=== PATIENT | male | born 1960 | race Caucasian/White ===

== ENCOUNTER 2023-08-22 14:48 | Outpatient (AMB) | payer OTHER, SELFPAY ==
--- NOTE | 2023-08-22 15:04 | HO.NEPHOV ---
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 He does not monitor his blood pressure at [facility]. He does not have any chest pain, shortness of breath, paroxysmal nocturnal dyspnea, orthopnea, pedal edema, hematuria or orthostatic symptoms. He does not take any nonsteroidal anti-inflammatories and maintain good hydration. His serum creatinine has been stable. He does not have any headache, visual disturbances or new onset weakness. He is still smoking. He feels well. [facility] Medical History (Updated 08/22/23 @ 15:08 by Vani Riddle MA) CKD (chronic kidney disease) Hypertension Social History (Updated 08/22/23 @ 15:09 by Vani Riddle MA) Alcohol intake: current Patient Tobacco Use Status: Current everyday Tobacco user Cigarette Packs Per Day: 1 Use of substances other than those prescribed or required for medical reasons: No Physical Exam Vital Signs: Last Vital Signs Pulse 89 08/22/23 15:05 BP 130/60 08/22/23 15:05 Pulse Ox 97 08/22/23 15:05 Oxygen Delivery Method Room Air 08/22/23 15:05 Const General: comfortable and no acute distress Orientation/consciousness: patient oriented x3 HEENT Head: Yes normocephalic Mouth: Normal oral and palatal mucosa present Eyes EOM: EOMs intact bilaterally Neck Neck: Yes supple Resp Auscultation: clear to auscultation bilaterally Cardio Jugular venous distension: no JVD Rate: regular rate GI Palpation (GI): Soft to palpation Auscultation: normal bowel sounds General: Yes no CVA tenderness Back/Spine/Pelvis Back: no CVA tenderness Skin General skin exam: no rashes or lesions noted Neuro General: patient oriented x3 and moves all extremities Extrem General: Yes no pedal edema Results Reviewed Nephrology Results: No Data to Display Assessment & Plan Assessment & Plan (1) Hypertension: Code(s): I10 - Essential (primary) hypertension Category: Medical Qualifiers: Hypertension type: primary hypertension Qualified Code(s): I10 - Essential (primary) hypertension Plan Ervin has longstanding hypertension. His blood pressure is at goal. He should be on a low-sodium diet. He should avoid nonsteroidal anti-inflammatories. He should maintain good hydration. He has no orthostatic symptoms. He has no systemic symptoms. I had not make any medication changes today. His renal functions are stable. His blood chemistry is acceptable. I did not make any medication changes today. Follow-up lab work ordered. Follow-up appointment given. Answered all questions. Orders: Orders Blood Urea Nitrogen Today I10 - Essential (primary) hypertension Electrolytes Today I10 - Essential (primary) hypertension Creatinine Today I10 - Essential (primary) hypertension Medications: New losartan 25 mg PO DAILY 90 days 90 tabs 3RF Coding Level of Care Code Est Pt Level 4 (51668) Diagnoses Primary hypertension I10 Hypertension type: primary hypertension
[2023-08-22 15:05] VITALS: BP 130/60; PULSE 89; O2SAT 97
== END 2023-08-22 15:28 | disposition home or self-care (01) ==
PROVIDERS: PCP Internal Medicine; Visit Provider Internal Medicine Nephrology
DX: I10 Essential (primary) hypertension (principal)
CPT/HCPCS: 99214

== ENCOUNTER → 2023-08-22 14:48 | Outpatient (BNVA) | payer OTHER, SELFPAY | PROVIDERS: PCP Internal Medicine; Visit Provider Internal Medicine Nephrology ==

== ENCOUNTER 2024-02-22 14:50 | Outpatient (AMB) | payer OTHER, SELFPAY ==
--- NOTE | 2024-02-22 15:11 | HO.NEPHOV_ITS ---
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 He does not monitor his blood pressure at home. He does not have any chest pain, shortness of breath, paroxysmal nocturnal dyspnea, orthopnea, pedal edema, hematuria or orthostatic symptoms. He does not take any nonsteroidal anti-inflammatories and maintain good hydration. His serum creatinine has been stable. He does not have any headache, visual disturbances or new onset weakness. He is still smoking. He feels well. [facility] Medical History (Updated 08/22/23 @ 15:08 by Vani Riddle MA) CKD (chronic kidney disease) Hypertension Social History Alcohol intake: current Patient Tobacco Use Status: Current everyday Tobacco user Cigarette Packs Per Day: 1 Review of Systems Const All systems reviewed & are unremarkable except as noted in HPI and below Physical Exam Vital Signs: Last Vital Signs Pulse 80 02/22/24 15:12 BP 140/60 H 02/22/24 15:12 Pulse Ox 96 02/22/24 15:12 Oxygen Delivery Method Room Air 02/22/24 15:12 BMI result Body Mass Index 21.9 Const General: comfortable and no acute distress Orientation/consciousness: patient oriented x3 HEENT Head: Yes normocephalic Mouth: Normal oral and palatal mucosa present Eyes EOM: EOMs intact bilaterally Neck Neck: Yes supple Resp Auscultation: clear to auscultation bilaterally Cardio Jugular venous distension: no JVD Rate: regular rate GI Palpation (GI): Soft to palpation Auscultation: normal bowel sounds General: Yes no CVA tenderness Back/Spine/Pelvis Back: no CVA tenderness Skin General skin exam: no rashes or lesions noted Neuro General: patient oriented x3 and moves all extremities Extrem General: Yes no pedal edema Results Reviewed Nephrology Results: No Data to Display Assessment & Plan Assessment & Plan (1) Hypertension: Code(s): I10 - Essential (primary) hypertension Category: Medical Qualifiers: Hypertension type: primary hypertension Qualified Code(s): I10 - Essential (primary) hypertension Plan Ervin has longstanding hypertension. His blood pressure is at goal. He should be on a low-sodium diet. He should avoid nonsteroidal anti-inflammatories. He should maintain good hydration. He has no orthostatic symptoms. He has no systemic symptoms. I had not make any medication changes today. His renal functions are stable. His blood chemistry is acceptable. I did not make any medication changes today. Follow-up lab work ordered. Follow-up appointment given. Answered all questions. Orders: Orders Blood Urea Nitrogen 1 Year I10 - Essential (primary) hypertension Electrolytes 1 Year I10 - Essential (primary) hypertension Protein Creatinine Ratio, Ur 1 Year I10 - Essential (primary) hypertension Creatinine 1 Year I10 - Essential (primary) hypertension Coding Level of Care Code Est Pt Level 4 (73186) Diagnoses Primary hypertension I10 Hypertension type: primary hypertension
[2024-02-22 15:12] VITALS: BP 128/60; PULSE 80; O2SAT 96; BMI 21.9
== END 2024-02-22 15:43 | disposition home or self-care (01) ==
PROVIDERS: PCP Internal Medicine; Visit Provider Internal Medicine Nephrology
DX: I10 Essential (primary) hypertension (principal)
CPT/HCPCS: 99214

== ENCOUNTER → 2024-02-22 14:50 | Outpatient (BNVA) | payer OTHER, SELFPAY | PROVIDERS: PCP Internal Medicine; Visit Provider Internal Medicine Nephrology | DX: I10 Essential (primary) hypertension (principal) ==